=== PATIENT | male | born 1960 | race Caucasian/White ===

== ENCOUNTER 2018-07-28 18:37 | Emergency (ER) | payer OTHER ==
[2018-07-28] MEDS ORDERED: NS 1,000 ML IV ONE (19:05)
[2018-07-28] MEDS ORDERED: KETOROLAC 30 MG/1 ML SDV IVP ONE (19:05)
[2018-07-28] MEDS ORDERED: DEXAMETHASONE 10 MG/ML VIAL IVP ONE (19:05)
[2018-07-28] MEDS ORDERED: METOCLOPRAMIDE 10 MG/2 ML VIAL IVP ONE (19:05)
[2018-07-28] MEDS ORDERED: LIDOCAINE HCL 4% TOPICAL SOLN 50ML ONE (19:13)
[2018-07-28] MEDS ORDERED: LIDOCAINE 4% 5 ML AMP IH ONE (19:14)
[2018-07-28] MEDS ORDERED: LIDOCAINE HCL 4% TOPICAL SOLN 50ML MM ONE (19:18)
--- NOTE | 2018-07-28 19:46 | EDPHY ---
H & P Time Seen by Provider: 07/28/18 18:42 HPI/ROS: CHIEF COMPLAINT: Cluster headache History by patient HISTORY OF PRESENT ILLNESS: 58-year-old man with a history of cluster headaches presents complaining of acute onset right-sided headache this morning which is similar to his prior cluster headaches. Associated with watery right eye in which intermittent sharp stabbing pain on the right side of his head. He has little bit of anorexia but no nausea or vomiting. He did have some Photophobia in the bright sun. This is similar to his previous episodes. The last 1 was about 5 years ago. He tried taking some ibuprofen with no relief. He says that oxygen has not worked for him in the past. He says that previously he is given Imitrex which usually does not work and then some other medications which"knock him out" and he feels better. Typically they are exacerbated by change in seasons although he does not typically get them in the fall. When they come on they will last for few weeks. REVIEW OF SYSTEMS: As in HPI, and all other systems reviewed and are negative Smoking Status: Heavy smoker Physical Exam: General Appearance: Alert, nontoxic-appearing. Head: normocephalic, atraumatic Eyes: Pupils equal and round, reactive to light, positive right greater than left injection with scant tearing from the right eye. Mouth: Mucous membranes moist. Neck: No meningismus Respiratory: Normal, effort, lungs are clear to auscultation. No wheezes, rales or rhonchi. Cardiovascular: Regular rate and rhythm. S1, S2, no murmurs, gallops or rubs appreciated Gastrointestinal: Abdomen is soft and nontender, no masses, bowel sounds normal. Back: No CVA tenderness, no bony tenderness Neurological: Awake, alert and oriented x 3, cranial nerves 2 through 12 intact , no pronator drift, normal gait, heel to nicholas intact, [id number] intact, DTRs 2+ and equal bilaterally, sensation equal bilaterally Skin: Warm and dry, no rashes. Musculoskeletal: No deformities or tenderness. Extremities: full range of motion, no edema, DP2+ bilat Psychiatric: Patient has normal affect, there is no agitation. Constitutional: Initial Vital Signs Temperature (C) 36.6 C 07/28/18 18:40 Heart Rate 66 07/28/18 18:40 Respiratory Rate 16 07/28/18 18:40 Blood Pressure 166/88 H 07/28/18 18:40 O2 Sat (%) 94 07/28/18 18:40 O2 Delivery Mode Room Air O2 (L/minute) 6 Allergies/Adverse Reactions: No Known Allergies Allergy (Verified 07/28/18 18:52) Home Medications: Medication Instructions Recorded Hydrocodone/APAP 5/325 [[place] 5 mg PO Q4-6PRN PRN #15 tab 09/18/14 5/325 (*)] Ibuprofen [Advil] 09/18/14 Gabapentin 07/28/18 Triamterene 07/28/18 predniSONE 20 mg PO DAILY #30 tablet 07/28/18 MDM/Departure - MDM Medications Given: Discontinued Medications Dexamethasone (Decadron Injection) 10 mg IVP EDNOW ONE Stop: 07/28/18 19:06 Last Admin: 07/28/18 19:48 Dose: 10 mg Sodium Chloride (Ns) 1,000 mls @ 0 mls/hr IV ONCE ONE; Wide Open PRN Reason: Protocol Stop: 07/28/18 19:06 Last Admin: 07/28/18 19:48 Dose: 1,000 mls Ketorolac Tromethamine (Toradol) 15 mg IVP EDNOW ONE Stop: 07/28/18 19:06 Last Admin: 07/28/18 19:49 Dose: 15 mg Lidocaine HCl (Lidocaine Hcl 4%) 140 mg IH EDNOW ONE Stop: 07/28/18 19:15 Last Admin: 07/28/18 19:20 Dose: Not Given Lidocaine HCl (Lidocaine Hcl 4% Topical Solution) 1 ml MM EDNOW ONE Stop: 07/28/18 19:19 Last Admin: 07/28/18 19:20 Dose: 1 ml Metoclopramide HCl (Reglan Injection) 10 mg IVP EDNOW ONE Stop: 07/28/18 19:06 Last Admin: 07/28/18 19:48 Dose: 10 mg ED Course/Re-evaluation: 58-year-old man presents with right-sided headache typical of his prior cluster headaches and consistent with cluster headaches tonight. He was put on high- flow oxygen with no change in his symptoms. He was then given intranasal lidocaine 4% with improvement in the severity of the attacks but not resolution. He is very concerned that they are going to get worse or come back when he goes home. Patient was therefore given an IV and given IV metoclopramide, Toradol and dexamethasone and he will be sent home on prednisone as a preventative. On re-evaluation the patient states that the clusters resolved even before receiving the IV medications and he is now asymptomatic and hungry. I will discharge home on prednisone as we discussed that he could follow up with his primary care physician as needed. - Depart Disposition: Home, Routine, Self-Care Clinical Impression: Cluster headache syndrome, not intractable Qualifiers: Headache chronicity pattern: unspecified pattern Qualified Code(s): G44.009 - Cluster headache syndrome, unspecified, not intractable Condition: Good Instructions: Cluster Headache (ED) Additional Instructions: You were seen by Dr. Gita Chavez today. We have treated year cluster headache with intranasal lidocaine 4% (0.5 mL spray into right nostril twice). Please also take prednisone as prescribed to prevent recurrence of the headaches. Please follow up with her primary care physician. Return for any worsening or new concerns. Prescriptions: predniSONE 20 mg PO DAILY #30 tablet
[2018-07-28 20:02] VITALS: BP 141/81
== END 2018-07-28 20:24 | disposition home or self-care (01) ==
LOC: CED 18:37
DX: G44.009 Cluster headache syndrome, unspecified, not intractable (principal); E86.9 Volume depletion, unspecified; F17.200 Nicotine dependence, unspecified, uncomplicated
CPT/HCPCS: 96374; J1100; J1885; J2765